=== PATIENT | male | born 1970 | race Caucasian/White ===

== ENCOUNTER 2021-11-18 19:53 | Inpatient (IN) | payer MEDICAID ==
[~2021-11-18] VITALS: Ht 167.6 cm; Wt 63.5 kg
[2021-11-18 19:53] VITALS: BP 132/69
--- NOTE | 2021-11-18 20:03 | NUR ---
PT [facility]. TAKEN TO BED 2
[2021-11-18 21:02] LABS: BASOPHILS % (AUTO) 0.3 % (0.0-2.0); EOSINOPHILS % (AUTO) 0.2 % (0.0-4.0); HEMATOCRIT 54.9 % (36-52); HEMOGLOBIN 17.7 g/dL (12.0-18.0); LYMPHOCYTES # (AUTO) 2.8 K/uL (2.0-11.5); LYMPHOCYTES % (AUTO) 19.4 % (20.5-51.1); MEAN CORPUSCULAR HEMOGLOBIN 30 pg (27-31); MEAN CORPUSCULAR HGB CONC 32 g/dL (33-37); MEAN CORPUSCULAR VOLUME 92.7 fL (80-94); MONOCYTES # (AUTO) 1.5 K/uL (0.8-1.0); MONOCYTES % (AUTO) 10.4 % (1.7-9.3); NEUTROPHILS # (AUTO) 10.2 K/uL (1.8-7.7); NEUTROPHILS % (AUTO) 69.7 % (42.2-75.2); PLATELET COUNT (AUTO) 331 K/uL (140-450); RED BLOOD CELL COUNT(AUTO) 5.92 MIL/uL (4.20-6.10); WHITE BLOOD COUNT (AUTO) 14.6 K/uL (4.8-10.8)
[2021-11-18 21:05] LABS: ANION GAP 27.5 (8-16); CARBON DIOXIDE 12.8 mmol/L (21-32); CREATININE 1.1 mg/dL (0.6-1.3); POTASSIUM 3.3 mmol/L (3.5-5.1)
--- NOTE | 2021-11-18 21:10 | NUR ---
PATIENT TURNED TO LEFT SIDE WITH PILLOW SUPPORT.
[2021-11-18] MEDS ORDERED: ACETAMINOPHEN EXTRA STRENGTH 500 MG TAB GT ONE (21:15)
[2021-11-18] MEDS ORDERED: cefTRIAXone 1,000 MG in DEXT 5% MINI-BAG PLUS 50 ML IV ONE (21:45)
[2021-11-18] MEDS ORDERED: NACL 0.9% 1,000 ML IV SCH (21:45)
--- NOTE | 2021-11-18 23:00 | NUR ---
PATIENT TURNED TO RIGHT SIDE WITH PILLOW SUPPORT.
[2021-11-18 23:59] LABS: APPEARANCE,URINE CLEAR (CLEAR); BILIRUBIN,URINE NEGATIVE (NEGATIVE); BLOOD, URINE 2+ (NEGATIVE); COLOR,URINE YELLOW (YELLOW); LEUKOCYTE ESTERASE ,URINE NEGATIVE (NEGATIVE); NITRITE, URINE NEGATIVE (NEGATIVE); UGLUCOSE NEGATIVE (NEGATIVE)
[2021-11-19 00:07] LABS: RBC,URINE 20-50 /HPF (0-5); WBC,URINE 0-5 /HPF (0-5)
--- NOTE | 2021-11-19 01:01 | NUR ---
PATIENT TURNED TO LEFT SIDE WITH PILLOW SUPPORT.
--- NOTE | 2021-11-19 01:09 | NUR ---
TELE NEURO INITIATED PER DR. BURNS
--- NOTE | 2021-11-19 01:23 | NUR ---
TELE NEURO NEUROLOGIST SPEAKING WITH PATIENT AT THIS TIME
--- NOTE | 2021-11-19 03:02 | NUR ---
PATIENT TURNED TO LEFT SIDE WITH PILLOW SUPPORT. Addendum: 11/19/21 at 0527 by [email or web address] PATIENT TURNED TO RIGHT SIDE WITH PILLOW SUPPORT.
--- NOTE | 2021-11-19 05:28 | NUR ---
PATIENT TURNED TO LEFT SIDE WITH PILLOW SUPPORT.
[2021-11-19] MEDS ORDERED: CLON2TAB10 PO (06:13)
[2021-11-19] MEDS ORDERED: LEVE1000 PO (06:14)
[2021-11-19] MEDS ORDERED: SYN.05 PO (06:17)
[2021-11-19] MEDS ORDERED: MULT-1328 PO (06:19)
[2021-11-19] MEDS ORDERED: MIRABULK PO (06:19)
[2021-11-19] MEDS ORDERED: ROB1 PO (06:21)
--- NOTE | 2021-11-19 06:57 | NUR ---
PATIENT TURNED TO RIGHT SIDE WITH PILLOW SUPPORT.
--- NOTE | 2021-11-19 07:25 | NUR ---
RECIEVED REPORT FROM MADDI URIOSTEGUI FOR TRANSFER OF CARE.
--- NOTE | 2021-11-19 07:43 | NUR ---
Change of shift report given to AM shift nurse Toyin RN. AM shift nurse Toyin RN verbalized understanding of report, no further questions.
--- NOTE | 2021-11-19 08:26 | NUR ---
PATIENT HAS BEEN SCREENED AND CATEGORIZED LOW NUTRITION RISK. PATIENT WILL BE SEEN WITHIN 7 DAYS OF ADMISSION. 11/19/21-11/25/[address]
[2021-11-19] MEDS ORDERED: ACETAMINOPHEN 325 MG TAB PO PRN (08:35)
[2021-11-19] MEDS ORDERED: ONDANSETRON 4 MG/2 ML VIAL IM/IVP PRN (08:35)
[2021-11-19] MEDS ORDERED: MORPHINE SULFATE 2 MG/ML SYR IVP PRN (08:35)
[2021-11-19] MEDS ORDERED: ZOLPIDEM 5 MG TAB PO PRN (08:35)
[2021-11-19] MEDS ORDERED: DOCUSATE SODIUM 100 MG GELCAP PO PRN (08:35)
[2021-11-19] MEDS ORDERED: HYDROcodone/APAP 7.5/325 MG 1 TAB PO PRN (08:35)
[2021-11-19] MEDS ORDERED: POTASSIUM CHLORIDE 10 MEQ TABER PO PRN (08:35)
[2021-11-19] MEDS ORDERED: guaiFENesin DM 200/20 MG-10 ML 10 ML UDC PO PRN (08:35)
[2021-11-19] MEDS ORDERED: PANTOPRAZOLE 40 MG TABEC PO SCH (09:00)
[2021-11-19] MEDS ORDERED: levETIRAcetam 1,000 MG in NACL 0.9% 100 ML IV SCH (09:00)
--- NOTE | 2021-11-19 09:00 | NUR ---
Dr. Pierre, admitting doctor, evaluating patient at bedside.
[2021-11-19] MEDS: levETIRAcetam 1,000 MG in NACL 0.9% 100 ML IV SCH ×2 (09:06→23:44)
[2021-11-19 09:20] LABS: MAGNESIUM 2.3 mg/dL (1.8-2.4); PHOSPHORUS 2.3 mg/dL (2.5-4.9)
[2021-11-19] MEDS: PANTOPRAZOLE 40 MG INJ VIAL IVP SCH (10:56)
--- NOTE | 2021-11-19 12:10 | NUR ---
PATIENT WAS PROVIDED WITH [facility]. PATIENT WAS MADE CLEAN, DRY AND REPOSITIONED.
--- NOTE | 2021-11-19 14:25 | NUR ---
Patient is laying in bed, respirations even and unlabored. Patient has no signs of distress noted.
--- NOTE | 2021-11-19 17:18 | NUR ---
Notified Dr. Pierre of patient being NPO and no IV fluids ordered. Dr. Pierre will input orders.
--- NOTE | 2021-11-19 17:45 | NUR ---
Patient moved from bed 2 to bed 11.
--- NOTE | 2021-11-19 18:22 | NUR ---
Patient is alert with respirations even and unlabored. Patient has no signs of respiratory distress.
--- NOTE | 2021-11-19 19:25 | NUR ---
Report given to MADDI Mcnamara for transfer of care.
--- NOTE | 2021-11-19 20:55 | NUR ---
Patient will be admitted to care of DR FRANCIS. Admited to TELE. Will go to room 122B. Belongings list completed. Report to MADDI NORMAN.
--- NOTE | 2021-11-19 21:00 | NUR ---
RECEIVED REPORT ON PATIENT FROM ER NURSE FOR CONTINUITY OF CARE. PT ARRIVED ON MST UNIT VIA GURNEY. PT NONVERBAL, IN BED RR EVEN AND UNLABORED. NO SOB, NO ACUTE DISTRESS NOTED. IV SITE L HAND 20G SALINE LOCK. ON G-TUBE FEEDING OF GLUCERNA 1.2 RUNNING AT 20CC/HR WITH WATER FLUSH OF 100CC Q 6HRS. HOB ELEVATED FOR ASPIRATION PRECAUTIONS. PT ALSO ON SEIZURE PRECAUTIONS. SIDE RAILS PADDED. PT'S SKIN IS INTACT. PT IS BEDBOUND AND INCONTINENT- DIAPER. CALL LIGHT WITHIN REACH. WILL CONTINUE WITH FREQ ROUNDS.
[2021-11-19] MEDS ORDERED: levETIRAcetam 100 MG/ML VIAL IV ONE (23:17)
[2021-11-20 04:00] VITALS: BP 107/62
[2021-11-20 06:38] LABS: BASOPHILS % (AUTO) 0.5 % (0.0-2.0); EOSINOPHILS # (AUTO) 0.1 K/uL (0-0.4); EOSINOPHILS % (AUTO) 1.8 % (0.0-4.0); HEMOGLOBIN 16.3 g/dL (12.0-18.0); LYMPHOCYTES # (AUTO) 2.1 K/uL (2.0-11.5); LYMPHOCYTES % (AUTO) 27.5 % (20.5-51.1); MEAN CORPUSCULAR HEMOGLOBIN 30 pg (27-31); MEAN CORPUSCULAR HGB CONC 34 g/dL (33-37); MEAN CORPUSCULAR VOLUME 89.6 fL (80-94); MONOCYTES # (AUTO) 1.1 K/uL (0.8-1.0); MONOCYTES % (AUTO) 14.3 % (1.7-9.3); NEUTROPHILS # (AUTO) 4.2 K/uL (1.8-7.7); NEUTROPHILS % (AUTO) 55.9 % (42.2-75.2); PLATELET COUNT (AUTO) 273 K/uL (140-450); RED BLOOD CELL COUNT(AUTO) 5.35 MIL/uL (4.20-6.10); RED CELL DISTRIBUTION WIDTH 13.2 % (11.6-13.7); WHITE BLOOD COUNT (AUTO) 7.5 K/uL (4.8-10.8)
[2021-11-20 06:47] LABS: ANION GAP 10.5 (8-16); CARBON DIOXIDE 26.6 mmol/L (21-32); CREATININE 0.7 mg/dL (0.6-1.3); POTASSIUM 4.1 mmol/L (3.5-5.1)
--- NOTE | 2021-11-20 07:20 | NUR ---
ENDORSED PT REPORT TO AM NURSE FOR CONTINUITY OF CARE. INCONTINENT X1 OF URINE NO BM. HAD 3CC RESIDUAL FROM G-TUBE. PT IS STABLE, NONVERBAL. ALL NEEDS MET THROUGHOUT THE SHIFT.
--- NOTE | 2021-11-20 07:30 | NUR ---
RECEIVED REPORT FROM CARRIAGE OPERATOR NURSE FOR CONTINUITY OF CARE RESPIRATION EVEN AND NOT LABORED NO SHORTNESS OF BREATH. PATIENT NON VERBAL NO DISTRESS NOTED. IV SITE ON LEFT HAND TONG 20 SALINE LOCK. ON G TUBE FEEDING OF GLUCERNA RUNNING AT 20 CC/HOUR WITH WATER FLUSH OF 100 CC EVERY 6 HOURS. HEAD OF BED ELEVATED FOR ASPIRATION PRECAUTION. PATIENT ALSO ON SEIZURE PRECAUTION.
--- NOTE | 2021-11-20 07:53 | NUR ---
REVIEWED AND DISCUSSED PLAN OF CARE WITH NANCY BURKS, WILL CONTINUE TO MONITOR
[2021-11-20 08:00] VITALS: BP 188/66
--- NOTE | 2021-11-20 09:24 | NUR ---
PT. WITH LOW ARELI SCALE AT HIGH RISK, CONTINUE TO FOLLOW PRESSURE INJURY PREVENTION INTERVENTIONS. -POSITIONING: TURN AND REPOSITION PATIENT Q 2H OR SOONER USE PILLOWS TO KEEP BONY PROMINENCES FROM DIRECT CONTACT WITH SURFACES USE REPOSITIONING WEDGES TO PROVIDE 30-DEGREE ANGLE FOR SIDE LYING POSITIONS OFFLOADING OR FOAM DRESSING TO ALL TUBING TO PREVENT MEDICAL DEVICES RELATED PRESSURE INJURY -RE-EVALUATING AND MANAGING INCONTINENCE MONITOR SKIN CONDITION DURING POSITION CHANGE DO NOT MASSAGE REDNESS, BONY PROMINENCES FREQUENT [facility]CARE AND PROVIDE BARRIER CREAMS PRN IF SOILING MOISTURE CONTROL BY OFFER BED SAUER/URINAL /ABSORBENT PAD TO WICK AND HOLD MOISTURE KEEP SKIN DRY AND PROTECT FROM FRICTION -MANAGE FRICTION/SHEAR/MOBILITY KEEP HOB AT THE LOWEST LEVEL OF ELEVATION NO MORE THAN 30 DEGREE UNLESS OTHERWISE CONTRAINDICATED USE LIFT SHEET OR TRANSFER DEVICE TO MOVE PATIENT AND PREVENT LATERAL SHEER. PROTECT HEELS, ELBOWS BONY PROMINENCES WITH SKIN BERRIES OR FOAM DRESSING IF EXPOSED TO FRICTION OFFLOAD BILATERAL HEELS BY PLACING PILLOWS UNDER CALVES AT ALL TIMES, UNLESS OTHERWISE CONTRAINDICATED -PRESSURE REDISTRIBUTION SURFACE THERAPY RAFAEL ISOFLEX MATTRESS -NUTRITION: PLEASE FOLLOW RD RECOMMENDATIONS AND OFFER NUTRITION SUPPLEMENTS IF ORDERED. PLEASE CONTACT WOUND CARE NURSE FOR ANY QUESTION AND CHANGE OF WOUND CONDITION.
[2021-11-20] MEDS: PANTOPRAZOLE 40 MG INJ VIAL IVP SCH (09:55)
[2021-11-20] MEDS: levETIRAcetam 1,000 MG in NACL 0.9% 100 ML IV SCH (09:55)
--- NOTE | 2021-11-20 09:57 | NUR ---
MADDI CARRIZALES GAVE IV KEPPRA AND PANTOPRAZOLE. PATIENT AWAKE NO SIGN AND SYMPTOMS OF SEIZURE OR ANY DISCOMFORT. HEAD OF BED KEEP ON ELEVATED FOR ASPIRATION PRECAUTION.
[2021-11-20] MEDS ORDERED: PHEN100C3 PO (10:21)
--- NOTE | 2021-11-20 10:51 | NUR ---
P.T. NOTES P.T. EVAL COMPLETED; REFER TO EVAL FOR DETAILS.
--- NOTE | 2021-11-20 11:30 | NUR ---
RECEIVED CALL FROM JOAN HALL INTEGRATION TECHNICIAN FROM [facility] AND ASKING FOR PATIENT CONDITION AND INFORM HER THAT PATIENT ON STABLE CONDITION AND HAS DISCHARGE ORDER ALREADY AND SHE SAID THAT SHE DOESN'T HAVE RECEIVE FROM HOUSE RN. 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
--- NOTE | 2021-11-20 12:23 | NUR ---
RECEIVED CALL FROM JOAN SHIPPING COORDINATOR THAT PATIENT WILL BE ARCHIVES TECHNICIAN BY 2:30 TO 3:30 PM ALSO GAVE REPORT FOR CONTINUITY OF CARE.
[2021-11-20 12:39] VITALS: BP 104/54
--- NOTE | 2021-11-20 14:47 | NUR ---
PATIENT ALERT NO DISTRESS NOTED ON STABLE CONDITION. NAME BAND REMOVED AND IV SFITE REMOVED WITH CATHETER INTACT. DISCHARGE PACKET GIVEN TO TRANSPORTATION TO BE GIVEN TO [facility]. WHEELED PATIENT ON AGURNEY WHEN HE LEFT ON STABLE CONDITION GT INTACT IN PLACE FLUSH WITH WATER BEFORE HE GOES.
== END 2021-11-20 14:45 | disposition home or self-care (01) | DRG 53 ==
LOC: MED 19:53 → MTU 11-19 03:42 → MED 11-19 03:49 → MTU 11-19 18:56
PROVIDERS: ADMIT Student in an Organized Health Care Education/Training Program; ATTEND Student in an Organized Health Care Education/Training Program
DX: G40.909 Epilepsy, unspecified, not intractable, without status epilepticus (principal); E87.2 Acidosis; E83.39 Other disorders of phosphorus metabolism; D72.829 Elevated white blood cell count, unspecified; E87.6 Hypokalemia; R13.10 Dysphagia, unspecified; R73.9 Hyperglycemia, unspecified; Z20.822 Contact with and (suspected) exposure to COVID-19; Z79.899 Other long term (current) drug therapy
CPT/HCPCS: 36415; 70450; 71045; 80048; 81001; 83605; 83735; 83880; 84100; 84484; 85025; 87040; 87081; 87086; 93005; 96365; 97163-GP; 99285; C9113; J1953